=== PATIENT | female | born 1960 | race Caucasian/White ===

== ENCOUNTER 2017-12-13 06:39 | Day surgery (SDC) | payer BC ==
[2017-12-11 14:38] VITALS: BMI 28.3
--- NOTE | 2017-12-12 09:38 | HP ---
Admitting History and Physical - Primary Care Physician PCP: Alfred Zee - Admission Chief Complaint: left breast cancer History of Present Illness: Patient is a 57 yo female noted to have left 11:00 calcifications and an US c/w an 8 oclock .5 cm mass on 11/09/2017. The US core of the 8 oclock density came back as an invasive ductal cancer ER and DC pos. The stereo guided core of the left 11:00 calcifications was c/w DCIS. MRI done was c/w known cancer. Patient is presenting for left breast WE with NL and snbx. History Source: Patient Limitations to Obtaining History: No Limitations - Past Medical History Cardiovascular: Yes: Hyperlipdemia Additional Past Medical History: osteoporosis - Past Surgical History Past Surgical History: Yes: ( x 2) - Smoking History Smoking history: Former smoker Have you smoked in the past 12 months: No If you are a former smoker, when did you quit?: MANY YEARS AGO - Alcohol/Substance Use Hx Alcohol Use: No Home Medications - Allergies Allergies/Adverse Reactions: Allergies Allergy/AdvReac Type Severity Reaction Status Date / Time clams Allergy Severe Vomiting Verified 12/11/17 14:29 scallops Allergy Severe Vomiting Verified 12/11/17 14:29 No Known Drug Allergies Allergy Verified 12/11/17 14:29 - Home Medications Home Medications: Ambulatory Orders Ascorbic Acid [Vitamin C] 500 mg PO DAILY 12/11/17 Atorvastatin Ca [Lipitor] 40 mg PO HS 12/11/17 Cholecalciferol (Vitamin D3) [Vitamin D] 2,000 unit PO DAILY 12/11/17 Glucosamine HCl 1,500 mg PO DAILY 12/11/17 Teriparatide [Forteo] 2.4 ml SQ DAILY 12/11/17 Family Disease History - Family Disease History Family History: Unremarkable Review of Systems - Review of Systems Constitutional: reports: No Symptoms Cardiovascular: reports: No Symptoms Respiratory: reports: No Symptoms Physical Examination Constitutional: Yes: Well Nourished Cardiovascular: Yes: WNL Respiratory: Yes: WNL Breast(s): Yes: Other (Symmetrical large ptotic D-cup breasts. No suspiciious masses or suspicious adenoopathy was noted bilaterally) Problem List - Problems (1) Breast cancer, left Code(s): C50.912 - MALIGNANT NEOPLASM OF UNSPECIFIED SITE OF LEFT FEMALE BREAST Qualifiers: Estrogen receptor status: positive Patient sex: female Assessment/Plan Plan: Left breast WE with NL x 2, snbx, lymphoscintogram possible andx
[2017-12-13] MEDS ORDERED: MIDAZOLAM HCL 2 MG/2 ML SINGLE DOSE VIAL ONE (11:58)
[2017-12-13] MEDS ORDERED: DEXAMETHASONE SOD PHOSPHATE 4 MG/1 ML VIAL ONE (12:00)
[2017-12-13] MEDS ORDERED: SODIUM CHLORIDE 0.9% P/F 10 ML VIAL IJ ONE (12:00)
[2017-12-13] MEDS ORDERED: ONDANSETRON 4 MG/2 ML VIAL ONE (12:00)
[2017-12-13] MEDS ORDERED: ceFAZolin SODIUM 1 GM VIAL ONE (12:00)
[2017-12-13] MEDS ORDERED: LIDOCAINE HCL/PF 2% SDV 5ML VIAL ONE (12:00)
[2017-12-13] MEDS ORDERED: BUPIVACAINE HCL/PF 2.5 MG/ML - 30 ML VIAL IJ ONE (12:17)
[2017-12-13] MEDS ORDERED: LIDOCAINE HCL 1%, 10 MG/ML (20ML VIAL) ONE (12:17)
[2017-12-13] MEDS ORDERED: ISOSULFAN BLUE 10 MG/ML VIAL SQ ONE (12:17)
[2017-12-13] MEDS ORDERED: ePHEDrine SULFATE 50 MG/1 ML AMPULE ONE (12:53)
[2017-12-13] MEDS ORDERED: LIDOCAINE 1%/EPI 1:100000 (20 ML MULTI DOSE VIAL) ONE (13:00)
[2017-12-13] MEDS ORDERED: fentaNYL CITRATE 250 MCG/5 ML VIAL ONE (13:16)
[2017-12-13] MEDS ORDERED: KETOROLAC TROMETHAMINE 30 MG/1 ML VIAL IVPUSH PRN (14:12)
[2017-12-13] MEDS ORDERED: ONDANSETRON 4 MG/2 ML VIAL IVPUSH PRN (14:12)
[2017-12-13] MEDS ORDERED: DEXTROSE 5%-0.45% SALINE 1,000 ML IV SCH (14:15)
[2017-12-13] MEDS ORDERED: oxyCODONE HCL 5 MG TABLET PO PRN ×2 (15:51)
[2017-12-13] MEDS ORDERED: LACTATED RINGERS SOLUTION 1,000 ML IV SCH (16:00)
[2017-12-13] MEDS ORDERED: oxyCODONE HCL 5 MG TABLET ONE (16:52)
[2017-12-13 17:05] VITALS: PULSE 82
[2017-12-13 18:16] VITALS: BP 110/74; TEMP 98
--- NOTE | 2017-12-13 21:20 | OP ---
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 PROCEDURE: Left breast partial mastectomy with mammographic needle localization x2 and left axillary sentinel lymph node biopsy with left breast mastopexy reduction by Dr. Hopkins. ANESTHESIA: General laryngeal mask airway anesthesia. PRIMARY SURGERY: Markell Zee MD FEATHER DUSTER WINDER: EREN Avery PLASTIC SURGEON: Markell Hopkins MD COMPLICATIONS: There were no complications. Briefly, the patient is a 57-year-old postmenopausal white female of [place] descent with no family history of breast or ovarian cancer. She underwent a mammography in October 2017 showing calcifications in the left breast 11 o'clock region and a suspicious 5-mm x 3-mm density in the left breast 8 o'clock region. Ultrasound core biopsy of the left breast 8 o'clock density came back with a poorly differentiated invasive duct cancer, which was ER/IL positive, HER2/marii negative. The left breast stereotactic core biopsy calcifications turned out to be DCIS. The patient was seen in consultation, and MRI just showed enhancement around the biopsy sites. The clips were 5 cm apart, and she was given the option of a mastectomy with reconstruction versus a wide partial mastectomy with bracketed needle localizations and reduction mastopexy. She was seen by the plastic surgeon and chose to have the partial mastectomy with mastopexy reduction. DESCRIPTION OF PROCEDURE: The patient was brought in for the procedure on December 13, 2017. She first underwent mammographic needle localizations of the clips in the medial aspect of the left breast then underwent a lymphoscintigraphy at [facility]. She was then brought to the [facility]. In the holding area, site verification was made, and informed consent was obtained. She was marked preoperatively by the plastic surgeon. She was brought into the operating room and laid on the OR table in the supine position. Venodynes were placed on the lower extremities prior to induction. She received 2 g of Ancef prior to incision. She underwent general laryngeal mask airway anesthesia. Both breasts were sterilely prepped and draped in the usual fashion with the wires prepped in the field. We injected 3 mL of Lymphazurin blue in the retroareolar region and intradermally. Massage was instituted. The sentinel lymph node biopsy was first performed. Incision was made just below the hair-bearing area over the left axilla, and dissection was undertaken, and blue lymphatics were seen coursing to a blue, hot lymph node with a 10-second Gamma count of 3838. This was sent to Pathology in permanent section in formalin. Hemostasis was achieved, and background count after removal of this 1 node was 86. The axillary wound was then closed using interrupted 2-0 plain suture then interrupted 3-0 deep dermal Vicryl suture and a running 4-0 subcuticular Biosyn to close the skin. At this point, the reduction mastopexy with partial mastectomy was performed. The plastic surgeon marked out the reduction mastopexy incision, and through that incision, we were able to perform the lumpectomy. We raised the skin flap medially over the needle localization sites and removed a larger amount of skin along the entire medial aspect of the left breast extending all the way up to the superior aspect. Both wires were removed with a specimen, which was oriented with a long lateral short superior suture. Specimen radiograph showed removal of both clips in question. We then did sent margins especially around the superior needle localization of the DCIS. We sent an anterior margin as well as a medial and lateral margin with sutures marking the biopsy cavity side. A separate area of breast tissue was removed from the superior outer aspect of the left breast by the plastic surgeon for the mastopexy reduction, which was sent separately as well. Hemostasis was achieved, and the wound was copiously irrigated. At this point, Dr. Hopkins became the primary surgeon who performed the reduction mastopexy through an inferior pedicle. This will all be dictated separately by Plastic Surgery, and all wounds will be closed separately by Plastic Surgery. The patient did have a drain placed due to the extent of the wide excision and reduction mastopexy, and this was brought out through a separate stab incision on the lateral skin flap and secured in place using a 3-0 nylon suture. Dermabond was placed over the wound, and she was placed in a surgical bra postoperatively with sterile gauze. The patient was brought to the post anesthesia care unit after the laryngeal mask airway tube was removed where she will be recovered and discharged the same day once discharge criteria are met. All sponge and needle counts were correct at the end of the case. Estimated blood loss was about 30 mL. She was hemodynamically stable throughout. The patient will follow up in 1 week for a formal wound pathology check. She will be taught J-P drain care prior to discharge. MARKELL ZEE M.D. [id number]
--- NOTE | 2017-12-14 10:07 | OP ---
DATE OF OPERATION: 12/13/2017 SURGEON: Markell Hopkins MD SECTION CHIEF SURGEON: Markell Zee MD PREOPERATIVE DIAGNOSIS: Left breast cancer requiring reconstruction. POSTOPERATIVE DIAGNOSIS: Left breast cancer requiring reconstruction. OPERATIVE PROCEDURE: 1. Immediate left breast reconstruction utilizing other technique. OPERATIVE INDICATION: This patient had a left breast cancer with multi-focal disease requiring large wide excision of the left breast by Dr. Markell Zee. This is a combined dictation with Dr. Zee who will dictate his portion of the procedure under separate cover. The patient had lymphoscintigram performed with needle localization prior to being seen today in the holding area. I obtained consent for the patient for tissue rearrangement and oncoplastic reduction with other technique. OPERATIVE PROCEDURE IN DETAIL: Patient was taken to the operating room by Dr. Zee, and she was prepped and draped in the usual fashion for breast surgery with both breasts exposed. The markings which had been made by me in the holding area preoperatively for reduction pattern oncoplastic reconstruction were re- measured and re-marked to be confirmed on the operating room table. At this point, Dr. Zee injected Lymphazurin blue dye into the nipple-areolar complex into the breast and then began his procedure by performing a sentinel lymph node biopsy on the left breast. At the same time, I began the procedure on the medial side of the breast by incising the skin according to the pattern down through the skin to the subcutaneous tissues, down to the deep chest wall, forming a pedicle for the nipple complex to be carried on. The wire-marking sutures were avoided during this dissection, and the pedicle was fashioned. Upon completion of the sentinel lymph node dissection, Dr. Zee performed his part of the procedure which will be dictated under a separate cover. Once the wide resection of the medial portion of the tumor was carried out, I then proceeded to remove a large block of tissue from the center and lateral portions of the left breast in order to create an oncoplastic reduction for reconstruction of the wide defect which was created from the cancer. This tissue was all sent for pathologic diagnosis to rule out breast cancer. Multiple biopsies were taken with margins by Dr. Zee, and these were also sent individually. After the pedicle was tacked into position using 2-0 Vicryl suture in the central portion, copious irrigation of the wound was performed. All floating material was removed, and a 15 Julio drain was brought out through a separate stab wound in the inferior portion and lateral to the breast. At this point, the skin and subcutaneous tissue flaps which were created were now advanced into the new position, and using 2-0 Vicryl sutures of the deep tissue, the pedicle and flaps were advanced and closed upon themselves. A second layer with 3-0 PDS suture was placed into the deep dermis to approximate the dermis tissue, and then, the nipple-areolar complex was inset into its new position with 3-0 PDS sutures in an interrupted fashion and a running 3-0 V-Loc suture around the nipple complex itself and along the vertical and transverse limbs of the new reconstructed breast. Good viability of the pedicle was seen throughout the procedure. The nipple-areolar complex appeared to be blue from the injection of dye but appeared to be viable. All wounds were dressed sterilely, and the axilla was closed using interrupted 3-0 sutures and a subcuticular suture. Steri-Strips and Dermabond dressings were placed over the breast itself. The patient was awakened, extubated, and transferred to the recovery room in a Surgi-Bra with a fluff dressing. MARKELL HOPKINS M.D. [id number] MTDD
--- NOTE | 2017-12-18 14:57 | PATH ---
Surgical Pathology Report Patient Name: BRAYDEN SUAREZ [facility]. Rec. #: [id number] /Age/Gender: 1960 (Age: 57) / F Account: [id number] Location: [facility] AM[facility] Taken: 12/13/2017 Received: 12/13/2017 Reported: 12/18/2017 Physicians: Alfred Zee M.D. Specimen(s) Received A: LEFT AXILLARY SENTINEL NODE #1 B: LEFT BREAST WIDE EXCISION C: LEFT LATERAL REDUCTION TISSUE D: LEFT BREAST ANTERIOR MARGIN E: LEFT BREAST MEDIAL MARGIN F: LEFT BREAST LATERAL MARGIN Clinical History Invasive Ca, wide excision with reduction mastopexy Final Diagnosis A. lymph node, left axillary sentinel #1 excision: One lymph node, negative for metastatic carcinoma (0/1). B. breast, left, wide excision: Invasive ductal carcinoma, poorly differentiated (tubule score: 3/3, nuclear grade: 3/3, mitotic score: 2/3; total score: 8/9, Allen grade 3). Invasive carcinoma measures 7 mm in greatest dimension, microscopically. Ductal carcinoma in situ (DCIS), solid type, high nuclear grade with extensive necrosis and associated calcifications is present admixed with invasive carcinoma and away from it (extensive intraductal component). Surgical margins are uninvolved by carcinoma; invasive carcinoma is at 7 mm from the closest (anterior) margin. DCIS is at 2 mm from the closest (deep) margin. see specimens D-F for final margins. Skin is present and is uninvolved by carcinoma. Lymphovascular invasion is identified. Remaining breast tissue shows atypical ductal hyperplasia (adh), usual ductal hyperplasia (UDH) and cystic apocrine metaplasia. Prior biopsy site changes are present. Pathologic stage (p TNM): pT1b pN0. see also invasive carcinoma case summary below. c. breast tissue, left lateral, reduction: Benign breast tissue. Skin with no pathologic findings. D. Breast, left, anterior margin, excision: Benign breast tissue. E. breast, left, medial margin, excision: Benign breast tissue. F. breast, left, lateral margin, excision: Benign breast tissue showing fibrocystic changes including usual ductal hyperplasia (udh) and microcyst formation. Comments Breast Invasive Carcinoma: Surgical Pathology Case Summary (Based on AJCC TNM 8 th edition) Procedure _X_ Excision (less than total mastectomy) Specimen Laterality _X_ Left Tumor Size _X_ Greatest dimension of largest invasive focus >1 mm : 7 mm Histologic Type _X_ Invasive carcinoma of no special type (ductal, not otherwise specified) Histologic Grade ([place] Histologic Score) Glandular (Acinar)/Tubular Differentiation _X_ Score 3 (<10% of tumor area forming glandular/tubular structures) Nuclear Pleomorphism _X_ Score 3 Mitotic Rate _X_ Score 2 Overall Grade _X_ Grade 3 (scores of 8 or 9) Tumor Focality _X_ Single focus of invasive carcinoma Ductal Carcinoma In Situ (DCIS) _X_ DCIS is present in specimen _X__ Positive for EIC Margins Invasive Carcinoma Margins _X_ Uninvolved by invasive carcinoma Distance from closest margin (millimeters): 7 mm from anterior margin in wide excision B; separate additional anterior margin D is negative for carcinoma. DCIS Margins _X_ Uninvolved by DCIS Distance from closest margin (millimeters): 2 mm from deep margin in wide excision B. Regional Lymph Nodes Number of Lymph Nodes with Macrometastases (>2 mm):0 Number of Lymph Nodes with Micrometastases (>0.2 mm to 2 mm and/or >200 cells): 0 Number of Lymph Nodes with Isolated Tumor Cells (=0.2 mm and =200 cells): 0 Number of Lymph Nodes Examined: 1 Number of [place] Nodes Examined: 1 Treatment Effect _X_ No known presurgical therapy Lymphovascular Invasion _X_ Present Pathologic Stage Classification (pTNM, AJCC 8th Edition) Primary Tumor (Invasive Carcinoma) (pT) _X_ pT1b: Tumor >5 mm but =10 mm in greatest dimension Regional Lymph Nodes (pN) Category (pN) _X_ pN0 (sn): No regional lymph node metastasis identified or ITCs only Biomarker Studies Results of ER and GA studies performed on this specimen (block B5) at [facility] are as follows: ER (clone [id number] mouse monoclonal antibody by [employer]): >90 % nuclear staining with strong intensity (Positive). GA (clone16 mouse monoclonal antibody by [employer]): >90 % nuclear staining with strong intensity (Positive). Results of Her2 and Ki67 studies will be reported separately in an addendum. Positive and negative controls (internal if applicable) show appropriate results. Formalin fixation and cold ischemic times are within current ASCO/CAP recommendations for ER, GA and Her2 testing. Electronically Signed Maria Isabel Hernandez M.D. Addendum Reported: 12/19/2017 Addendum Diagnosis Results of Her2 (IHC) & Ki-67 studies performed on block B5 at [place], [place] ([id number] ) are as follows: Her2 IHC (EP3 from [employer], formerly known as [id number], using [employer] Polymer Refine detection kit): 0 (Negative). Ki-67: 35-40% (high proliferative index). Positive and negative controls (internal if applicable) show appropriate results. Maria Isabel Hernandez M.D. Gross Description A. Received in formalin labeled "left axillary sentinel node #1," is a 4.0 x 1.8 x 0.6 cm blanco-yellow portion of soft tissue, consistent with a lymph node. The specimen is quadrisected and entirely submitted in 4 cassettes. B. Received in formalin labeled "left breast wide excision," is a 16.5 x 9.0 x 3.8 cm portion of fibroadipose tissue with a short suture marking the superior aspect and a long suture marking the lateral aspect of the specimen, per the surgeon. There are 2 needle localization wires present. There is a 5.0 x 3.5 cm portion of skin at the lateral aspect of the specimen and a 6.5 x 4.2 cm blanco, triangular portion of skin at the medial aspect of the specimen. The specimen is inked as follows: Superior and lateral blue; inferior green; medial yellow; anterior soft tissue red; deep black. The specimen is serially sectioned from medial to lateral. Sectioning reveals a 1.5 x 1.5 x 1.2 cm indurated focus of fibrous tissue with associated hemorrhage in the central portion of the specimen, abutting the anterior soft tissue margin. The mass is 1.2 cm from the deep margin. The remaining margins appear clear of the mass. There is an additional 0.7 x 0.5 x 0.4 cm blanco firm nodule in the medial aspect of the specimen, 0.7 cm from the anterior soft tissue margin. The nodule contains a reyez metallic biopsy clip. The remaining breast parenchyma displays abundant dense, white, focally firm fibrous tissue. Customer Complaint Clerk sections are submitted in 14 cassettes as follows: 1-2-one full-face section of mass each (each with anterior and deep margins); 4-2-ulrqnmghbg fibrous tissue surrounding mass (each with anterior and deep margins); 5-6-medial nodule with anterior margin; 6-4-pdtxjhkukl fibrous tissue with anterior soft tissue margin; 9-uninvolved fibrous tissue with deep margin; 10-superior margin; 11-inferior margin; 12-medial margin; 13-lateral margin; 14-skin. Time to formalin fixation: 19 minutes Total formalin fixation time: Approximately 28 hours. C. Received in formalin labeled "left lateral reduction tissue," is a 121 g, 13.0 x 10.5 x 3.0 cm unoriented portion of fibroadipose tissue which is surfaced by an 8.0 x 3.5 cm blanco, elliptical, unremarkable portion of skin. Sectioning reveals abundant dense, white, firm fibrous tissue. Customer Complaint Clerk sections are submitted in 3 cassettes. D. Received in formalin labeled "left anterior margin," is a 3.0 x 3.0 x 1.2 cm portion of fibroadipose tissue with a suture marking the biopsy cavity side, per the surgeon. The new margin is inked blue and the specimen is serially sectioned. The specimen is entirely and sequentially submitted in 5 cassettes. E. Received in formalin labeled "left breast medial margin," is a 3.2 x 2.5 x 1.0 cm portion of fibroadipose tissue with a suture marking the biopsy cavity side, per the surgeon. The new margin is inked blue and the specimen is serially sectioned. The specimen is entirely and sequentially submitted in 4 cassettes. F. Received in formalin labeled "left lateral margin breast," is a 3.0 x 2.0 x 1.2 cm portion of fibroadipose tissue with a suture marking the biopsy cavity side, per the surgeon. The new margin is inked blue and the specimen is serially sectioned. The specimen is entirely and sequentially submitted in 5 cassettes. DL12/14/2017 saudi12/14/2017
== END 2017-12-13 18:21 | disposition home or self-care (01) ==
LOC: FASU 06:39
PROVIDERS: ATTEND Surgery Surgical Oncology
PROC: 0HBU0ZZ Excision of Left Breast, Open Approach (ICD-10-PCS; principal; 2017-12-13 13:00)
PROC: 0HRU07Z Replacement of Left Breast with Autologous Tissue Substitute, Open Approach (ICD-10-PCS; 2017-12-13 13:00)
DX: C50.512 Malignant neoplasm of lower-outer quadrant of left female breast (principal); D05.92 Unspecified type of carcinoma in situ of left breast
CPT/HCPCS: 19281; 36415; 78195-TC; 84132; 88305-TC; 88307-TC; 88342-TC; 94760; A9541

== ENCOUNTER 2018-12-05 06:07 | Day surgery (SDC) | payer BC ==
[2018-11-22 16:01] VITALS: BMI 28.5
[2018-12-05] MEDS ORDERED: BUPIVACAINE HCL/PF 2.5 MG/ML - 30 ML VIAL IJ ONE (07:28)
[2018-12-05] MEDS ORDERED: LIDOCAINE 1%/EPI 1:100000 (20 ML MULTI DOSE VIAL) ONE (07:29)
[2018-12-05] MEDS ORDERED: PROPOFOL 20 ML ONE ×2 (07:30)
[2018-12-05] MEDS ORDERED: MIDAZOLAM HCL 2 MG/2 ML SINGLE DOSE VIAL ONE (07:30)
[2018-12-05] MEDS ORDERED: KETOROLAC TROMETHAMINE 30 MG/1 ML VIAL ONE (07:31)
[2018-12-05] MEDS ORDERED: ceFAZolin SODIUM 1 GM VIAL ONE (07:31)
[2018-12-05] MEDS ORDERED: DEXAMETHASONE SOD PHOSPHATE 4 MG/1 ML VIAL ONE (07:31)
[2018-12-05] MEDS ORDERED: ONDANSETRON 4 MG/2 ML VIAL ONE (07:31)
[2018-12-05] MEDS ORDERED: LIDOCAINE HCL/PF 2% SDV 5ML VIAL ONE (07:31)
[2018-12-05] MEDS ORDERED: LIDOCAINE HCL 2% JELLY (5 ML/TUBE) ONE (07:31)
[2018-12-05] MEDS ORDERED: LIDOCAINE 1%/EPI 1:100000 (50 ML MULTI DOSE VIAL) NR ONE (08:30)
--- NOTE | 2018-12-05 09:57 | SURG ---
Surgery Mds Manager Note Mds Manager: Katherin Priest PA-C (Suzy) Date of Service: 12/05/18 Diagnosis: 1. Acquired chest wall deformity, status post left partial mastectomy with reduction. 2. Macromastia right breast. 3. Asymmetry of reconstructed chest wall. 4. Personal history of breast carcinoma Procedure: Right breast reduction mammoplasty for symmetry, post breast cancer I was present for the entirety of the operative procedure. For further detail, please refer to operative report. Visit type - Case Type Case Type: Scheduled - Emergency Emergency Visit: No - New patient This patient is new to me today: Yes Date on this admission: 12/06/18 - Critical Care Critical Care patient: No
--- NOTE | 2018-12-05 09:57 | OP ---
Operative Note - Note: Operative Date: 12/05/18 Pre-Operative Diagnosis: 1. Acquired chest wall deformity, status post left partial mastectomy with reduction. 2. Macromastia right breast. 3. Asymmetry of reconstructed chest wall. 4. Personal history of breast carcinoma Operation: Right breast reduction mammoplasty for symmetry, post breast cancer Post-Operative Diagnosis: Same as Pre-op Surgeon: Jamil Hopkins Side Laster Staple: Katherin Priest Anesthesiologist/TEAM CDL DRIVER: Javier Park Anesthesia: General, Local (10cc Lidocaine with epi injected at start of case) Specimens Removed: Right breast tissue/skin Estimated Blood Loss (mls): 20 (ml) Fluid Volume Replaced (mls): 600 (ml LR) Operative Report Dictated: Yes
[2018-12-05] MEDS ORDERED: ONDANSETRON 4 MG/2 ML VIAL IVPUSH PRN (09:58)
[2018-12-05] MEDS ORDERED: oxyCODONE HCL 5 MG TABLET PO PRN ×2 (09:58)
[2018-12-05] MEDS ORDERED: PROMETHAZINE HCL 25 MG/1 ML VIAL IVPUSH PRN (09:58)
--- NOTE | 2018-12-05 10:26 | OP ---
DATE OF OPERATION: 12/05/2018 SURGEON: Markell Hopkins MD CASTING REPAIRER SURGEON: EREN Rome PREOPERATIVE DIAGNOSES: 1. Acquired chest wall deformity, status post left partial mastectomy with reduction and radiation therapy. 2. Macromastia, right breast. 3. Asymmetry of reconstructed chest wall. 4. Personal history of breast carcinoma. POSTOPERATIVE DIAGNOSES: 1. Acquired chest wall deformity, status post left partial mastectomy with reduction and radiation therapy. 2. Macromastia, right breast. 3. Asymmetry of reconstructed chest wall. 4. Personal history of breast carcinoma. OPERATIVE PROCEDURE: Right breast reduction mammoplasty for symmetry, post breast cancer. OPERATIVE INDICATION: Patient is a 58-year-old white female who had previously undergone left mastectomy and reconstruction as well as radiation therapy on the left breast. She had a significant asymmetry with the right breast being significantly larger, and she could not do her daily activities due to imbalance and required secondary reconstruction for symmetry. The risks and benefits, surgical versus nonsurgical alternatives, as well as material complications of reduction mammoplasty were described to the patient on multiple occasions preoperatively including today in the holding area where she was marked in the standing position for symmetry with the opposite breast after having radiation therapy. She agreed to the planned procedures. All questions were asked and answered. OPERATIVE PROCEDURE IN DETAIL: Patient was taken to the operating room, and after induction of general anesthesia in the supine position, left arm was extended and padded. Venodyne boots were placed, and attention was turned to the markings which had been made previously in the standing position. These were remarked, remeasured, reconfirmed in the sitting and lying positions, and after timeout, attention was turned to the right breast. A number 42 nipple-areolar cutter was circumscribed around the nipple-areolar complex, and then, de-epithelialization of the inferior glandular pedicle technique was carried out along the inferior pole of the breast. Once this was de-epithelialized, skin flaps were raised off of the breast tissue itself, and a pedicle was created in the central portion of the breast, leaving it attached to the chest wall inferiorly. Tissue was removed en bloc from the lateral, medial, and central portions of the upper breast, weighing approximately 520 g of tissue. Once this tissue was removed and sent for pathologic diagnosis to rule out breast cancer, the wounds were copiously irrigated, hemostasis meticulously obtained x3, and irrigated multiple occasions with saline. Once this was accomplished, tacking sutures using 2-0 Vicryl sutures were used to centralize the medial pedicle in a central position on the chest wall. Good viability of the nipple complex was seen at this point. Skin flaps were then advanced and closed in the usual fashion for inferior breast reduction and closed in multiple layers using 2-0 Vicryl sutures on the deep tissue, 3-0 PDS suture to the deep dermal fascia, and a running subcuticular suture with 3-0 V-Loc suture was placed on the skin. Circumareolarly, the nipple was previously circumscribed and dropped back, and then, that was brought out into its new anatomic position and sutured using 3-0 PDS suture in the deep tissue and 3-0 V-Loc circumferentially around the dermis. Good shape and contour were seen to match the opposite side. The patient was placed with Dermabond, Steri-Strips, and a compressive dressing, in a Surgi-Bra, awakened, and transferred to the recovery room in satisfactory condition. She tolerated the procedure well. MARKELL HOPKINS M.D. [id number]
[2018-12-05 11:22] VITALS: TEMP 97.5
[2018-12-05] MEDS ORDERED: oxyCODONE HCL 5 MG TABLET ONE (11:23)
[2018-12-05 12:13] VITALS: BP 136/70; PULSE 92
--- NOTE | 2018-12-06 18:01 | PATH ---
Surgical Pathology Report Patient Name: BRAYDEN SUAREZ [facility]. Rec. #: [id number] /Age/Gender: 1960 (Age: 58) / F Account: [id number] Location: [facility] AMBULATORY Taken: 12/05/2018 Received: 12/05/2018 Reported: 12/06/2018 Physicians: Jamil Hopkins Specimen(s) Received BREAST SKIN AND TISSUE, RIGHT Clinical History History of breast cancer, left Right breast reduction, rule out cancer Final Diagnosis BREAST SKIN AND TISSUE, RIGHT, REDUCTION: BENIGN BREAST PARENCHYMA WITH FIBROCYSTIC CHANGES INCLUDING STROMAL FIBROSIS, MICROCYSTS, CYSTIC APOCRINE METAPLASIA, FOCAL COLUMNAR CELL CHANGE, AND USUAL DUCTAL HYPERPLASIA. SKIN WITHOUT SIGNIFICANT PATHOLOGIC FINDINGS. Electronically Signed Diane Sosa M.D. Gross Description Received in formalin labeled "right breast skin and tissue" are multiple irregular portions of fibroadipose tissue partially surfaced by skin, weighing 547 g and measuring 18 x 16 x 6 cm in aggregate. Skin surface shows no lesions. Surgical margins are inked in blue. Specimen is serially sectioned. On cut section, a white fibrous lesion is identified in one of the smaller fragments measuring 0.6 x 0.5 cm, abutting the inked surgical margin. The entire lesion is submitted. Remainder of the specimen is fibrofatty. Atmospheric Chemist sections are submitted in 6 cassettes as follows: 1- fibrofatty tissue and skin, 2-4- fibrous lesion, smaller fragment, 5-6 accounts payable representative sections, larger fragment. MLSZ/12/06/2018 [email or web address]/12/06/2018
== END 2018-12-05 12:19 | disposition home or self-care (01) ==
LOC: FASU 06:07
PROVIDERS: ATTEND Plastic Surgery
PROC: 0HBT0ZZ Excision of Right Breast, Open Approach (ICD-10-PCS; principal; 2018-12-05 08:14)
DX: N62 Hypertrophy of breast (principal); M95.4 Acquired deformity of chest and rib; Z90.12 Acquired absence of left breast and nipple; Z85.3 Personal history of malignant neoplasm of breast; Z92.3 Personal history of irradiation; N65.1 Disproportion of reconstructed breast
CPT/HCPCS: 94760